=== PATIENT | male | born 1990 | race African-American/Black ===

== ENCOUNTER 2020-09-30 10:27 | Emergency (ER) | payer BC, SELFPAY ==
--- NOTE | 2020-09-30 10:28 | ED.MALEGU ---
HPI - Male Genitourinary General Chief complaint: Urogenital-Male Stated complaint: std checks Time Seen by Provider: 09/30/20 10:28 Source: patient and RN notes reviewed History of Present Illness HPI Narrative: Patient is a 29-year-old male who presents the urgent care with complaints of possible STD. Patient states that he has been positive for gonorrhea in the past and at that time he had complaints of loose stools. Patient states that for the last 2 to 3 weeks he has been having loose stools. Patient also reports of some intermittent right lower abdominal cramping. Patient is also HIV positive. States that he has had a recent new partner who he does not talk to very often . And is assuming maybe he has an STD. Patient denies of any nausea or vomiting. Denies of any fevers. Denies of any dysuria, blood in the urine, flank pain, urinary frequency/urgency. Patient reports of some white penile drainage. No other acute complaints. No acute distress noted. Patient aware of the plan of care. Some parts of this dictation were generated by voice recognition software and may contain typographical and/or grammatical inaccuracies. Related Data Home Medications Medication Instructions Recorded Confirmed [id number] ala 1 tablet PO DAILY 09/30/20 09/30/20 [Biktarvy] Allergies Allergy/AdvReac Type Severity Reaction Status Date / Time No Known Allergies Allergy Verified 09/30/20 11:15 Review of Systems Review of Systems: Narrative: CONSTITUTIONAL: Denies fever, chills, or sweats. EYES: Denies visual changes, redness, or discharge. ENT: Denies rhinorrhea, congestion, sore throat, or otalgia. CARDIOVASCULAR: Denies chest pain, palpitations, or edema. RESPIRATORY: Denies cough or dyspnea. GASTROINTESTINAL: Reports of loose stools with mild intermittent lower right abdominal pains without nausea or vomiting GENITOURINARY: Reports of white penile discharge SKIN: Denies rash or itching. MUSCULOSKELETAL: Denies back pain, joint pain, or myalgia. NEUROLOGIC: Denies headache, numbness, or weakness. All other systems reviewed are negative, except as documented in HPI. [facility] Social History Social History Gender identity (if verbalized by the patient): Male Comments At the time of my signature, I reviewed and agree with the nursing past medical, surgical, social, and family history. There is no relevant family history pertinent to the patient complaint. Exam Narrative: Exam Narrative: GENERAL: This is a well-nourished, well-developed patient, in no apparent distress. HEAD: normocephalic, atraumatic. EYES: PERRL. Sclera clear/white. Vision is grossly intact. EARS: External ears normal NOSE: External nose normal with no obvious nasal discharge, nares without redness, no rhinorrhea. THROAT: Mucous membranes moist NECK: Neck supple CARDIOVASCULAR: Regular rate and rhythm without murmurs, gallops, or rubs. RESPIRATORY: Clear to auscultation. Breath sounds equal bilaterally. No wheezes, rales, or rhonchi. GASTROINTESTINAL: Abdomen soft, non-tender, nondistended. Bowel sounds are active.No guarding. SKIN: warm, intact with no suspicious lesions or rash, good texture and turgor. NEURO: awake, alert, and oriented to person, place and time. There were no obvious focal neurologic abnormalities. EXTREMITIES: No clubbing, cyanosis, or edema. BACK: Negative bilateral CVA tenderness Course Vital Signs Vital signs: Vital Signs Temperature 98.1 F 09/30/20 10:30 Pulse Rate 78 09/30/20 10:30 Respiratory Rate 16 09/30/20 10:30 Blood Pressure 145/85 H 09/30/20 10:30 Pulse Oximetry 100 09/30/20 10:30 Temperature 98.1 F 09/30/20 10:30 Pulse Rate 78 09/30/20 10:30 Respiratory Rate 16 09/30/20 10:30 Blood Pressure 145/85 H 09/30/20 10:30 Pulse Oximetry 100 09/30/20 10:30 Reviewed?patient is informed that they may have pre-hypertension or hypertension based on a blood pressure reading in
[2020-09-30 10:30] VITALS: BP 145/85; PULSE 78; RESP 16; TEMP 36.7; O2SAT 100
== END 2020-09-30 11:49 | disposition home or self-care (01) ==
PROVIDERS: Emergency Provider Nurse Practitioner Family
DX: Z72.51 High risk heterosexual behavior (principal); Z21 Asymptomatic human immunodeficiency virus [HIV] infection status
CPT/HCPCS: 81003; 87491; 87591; 87661; 99213; G0463; J0696